=== PATIENT | male | born 1990 | race Caucasian/White ===

== ENCOUNTER 2019-02-18 15:45 | Emergency (ER) | payer OTHER ==
[~2019-02-18 15:45] MED LIST: CLI150 PO; FLU60VIA41 IM; LOR5 PO; ONDA4TAB9 PO; ONDA8TAB98 PO; SULF-198 PO
--- NOTE | 2019-02-18 15:57 | ER Report ---
History and Physical Time Seen By MD: 15:57 Hx. of Stated Complaint: pt states he is an alcoholic, doesnt keep track of how much he drinks. but he has been drinking daily for the past 4 years. has attempted to detox at home. states he needs more help. HPI/ROS CHIEF COMPLAINT: alcohol detox HISTORY OF PRESENT ILLNESS: 28 year old male presents to ED for alcohol detox. He is accompanied by his . He reports symptoms of tremor, nausea, vomiting, palpations, dizziness. No hallucinations or delusions. Patient states he is an alcoholic. He has been drinking for about 4 years, but daily for approximately 1 year. He drinks approximately 5 drinks a day with hard alcohol. He states he has tried to quit in the past, however he can quit for approximately one week before the tremors get too bad and he takes another drink to get rid of the symptoms. Patient reports that he does not want to continue drinking. He denies seizures. REVIEW OF SYSTEMS: Constitutional: Reports decreased appetite. No fever Respiratory: No cough, no dyspnea. Cardiovascular: Reports palpitations. No chest pain. Gastrointestinal: Reports nausea and vomiting. No abdominal pain. Reports diarrhea this morning. Musculoskeletal: No back pain. Neuro: Tremor in hands. Reports dizziness. No hallucinations or delusions. Psych: Reports suicidal thoughts, however, reports the thoughts were fleeting, no suicidal plan Allergies: Coded Allergies: No Known Drug Allergies (Verified , 09/28/16) Home Meds Active Scripts Ondansetron (ONDANSETRON ODT) 8 Mg Tab.rapdis, 8 MG PO Q12H PRN for NAUSEA/VOM ITING, #8 TAB 0 Refills Prov:TEGAN BARNES DNP, [employer] 12/19/18 Past Medical/Surgical History No significant past medical hx. Past surgical hx of appendectomy 2011. Reviewed Nurses Notes: Yes Hx Smoking: No Hx Substance Use Disorder: No Hx Alcohol Use: Yes (1 NIGHTLY) Constitutional Vital Sign - Last 24 Hours 02/18/19 02/18/19 02/18/19 02/18/19 15:45 15:49 15:53 16:00 Temp 99.2 Pulse ??? 96 Resp 20 B/P (MAP) 161/101 161/101 (121) 156/108 (124) Pulse Ox 92 O2 Delivery Room Air 02/18/19 02/18/19 02/18/1902/18/19 16:15 16:30 16:45 17:00 Pulse 88 92 Resp 9 B/P (MAP) 119/91 (100) 128/92 (104) Pulse Ox 96 94 02/18/19 02/18/19 02/18/19 02/18/19 17:15 17:20 17:30 17:50 Pulse 95 96 96 B/P (MAP) 136/99 (111) Pulse Ox 94 90 92 02/18/19 02/18/19 02/18/19 02/18/19 18:00 18:20 18:30 18:50 Pulse 87 95 B/P (MAP) 127/91 (103) 145/95 (112) Pulse Ox 94 02/18/19 19:00 B/P (MAP) 137/96 (110) Physical Exam General Appearance: The patient is alert, has no immediate need for airway protection and no current signs of toxicity. Eyes: Pupils equal and round no injection. Respiratory: Chest is non tender, lungs are clear to auscultation. Cardiac: Heart tachy, regular rhythm Gastrointestinal: Abdomen is soft and non tender, no masses, bowel sounds ishan l. Musculoskeletal: Neck: Neck is supple and non tender. Extremities have full range of motion and are non tender. Neuro: Tremors to upper extremities bilaterally. Skin: No rashes or lesions. DIFFERENTIAL DIAGNOSIS: After history and physical exam differential diagnosis was considered for alcohol withdrawal, electrolyte abnormality, drug use, alcohol use. Medical Decision Making Data Points Result Diagram: 02/18/19 1556 02/18/19 1556 Laboratory Hematology Test 02/18/19 15:56 Red Blood Count 5.12 M/uL (4.00-5.60) Mean Corpuscular Volume 91.2 fL (80.0-96.0) Mean Corpuscular Hemoglobin 32.3 pg (26.0-33.0) Mean Corpuscular Hemoglobin Concent 35.5 g/dL (32.0-36.0) Red Cell Distribution Width 13.4 % (11.5-14.5) Mean Platelet Volume 7.3 fL (7.2-11.1) Neutrophils (%) (Auto) 79.9 % (39.4-72.5) Lymphocytes (%) (Auto) 9.8 % (17.6-49.6) Monocytes (%) (Auto) 9.7 % (4.1-12.4) Eosinophils (%) (Auto) 0.1 % (0.4-6.7) Basophils (%) (Auto) 0.5 % (0.3-1.4) Nucleated RBC Relative Count (auto) 0.0 /100WBC Neutrophils # (Auto) 5.7 K/uL (2.0-7.4) Lymphocytes # (Auto) 0.7 K/uL (1.3-3.6) Monocytes # (Auto) 0.7 K/uL (0.3-1.0) Eosinophils # (Auto) 0.0 K/uL (0.0-0.5) Basophils # (Auto) 0.0 K/uL (0.0-0.1) Nucleated RBC Absolute Count (auto) 0.00 K/uL Urine Color Yellow Urine Clarity Clear Urine pH 6.0 pH (4.8-9.5) Urine Specific [place] 1.013 Urine Protein Negative mg/dL (NEGATIVE) Urine Glucose (UA) 50 mg/dL (NEGATIVE) Urine Ketones 80 mg/dL (NEGATIVE) Urine Blood Negative (NEGATIVE) Urine Nitrite Negative (NEGATIVE) Urine Bilirubin Negative (NEGATIVE) Urine Urobilinogen Negative mg/dL (0.2-1.9) Urine Leukocyte Esterase Negative (NEGATIVE) Urine RBC 1 /HPF (0-2/HPF) Urine WBC 1 /HPF (0-5/HPF) Urine Squamous Epithelial Cells None /LPF (</=FEW) Urine Bacteria Negative /HPF (NONE-FEW) Urine Mucus Few /HPF (NONE-FEW) Sodium Level 137 mmol/L (137-145) Potassium Level 3.3 mmol/L (3.5-5.0) Chloride Level 93 mmol/L (98-107) Carbon Dioxide Level 28 mmol/L (22-30) Blood Urea Nitrogen 7 mg/dl (9-21) Creatinine 0.80 mg/dl (0.66-1.25) Glomerular Filtration Rate Calc > 60.0 Random Glucose 116 mg/dl (75-110) Calcium Level 10.1 mg/dl (8.4-10.2) Magnesium Level 1.3 mg/dl (1.7-2.2) Total Bilirubin 1.6 mg/dl (0.2-1.3) Aspartate Amino Transf (AST/SGOT) 275 U/L (0-35) Alanine Aminotransferase (ALT/SGPT) 238 U/L (0-56) Alkaline Phosphatase 82 U/L (0-126) Total Protein 8.3 g/dl (6.3-8.2) Albumin 5.1 g/dl (3.5-5.0) Salicylates Level < 10 mg/L Salicylate Last Dose Date unk Urine Opiates Screen Negative Acetaminophen Level < 10 ug/ml Urine Barbiturates Screen Negative Ur Tricyclic Antidepressants Screen Negative Urine Phencyclidine Screen Negative Urine Amphetamines Screen Negative Urine Benzodiazepines Screen Negative Urine Cocaine Screen Negative Urine Cannabinoids Screen Negative Serum Alcohol < 10 mg/dl Chemistry Test 02/18/19 15:56 White Blood Count 7.1 k/uL (4.5-11.0) Red Blood Count 5.12 M/uL (4.00-5.60) Hemoglobin 16.5 g/dL (14.0-18.0) Hematocrit 46.6 % (42.0-52.0) Mean Corpuscular Volume 91.2 fL (80.0-96.0) Mean Corpuscular Hemoglobin 32.3 pg (26.0-33.0) Mean Corpuscular Hemoglobin Concent 35.5 g/dL (32.0-36.0) Red Cell Distribution Width 13.4 % (11.5-14.5) Platelet Count 147 K/uL (150-450) Mean Platelet Volume 7.3 fL (7.2-11.1) Neutrophils (%) (Auto) 79.9 % (39.4-72.5) Lymphocytes (%) (Auto) 9.8 % (17.6-49.6) Monocytes (%) (Auto) 9.7 % (4.1-12.4) Eosinophils (%) (Auto) 0.1 % (0.4-6.7) Basophils (%) (Auto) 0.5 % (0.3-1.4) Nucleated RBC Relative Count (auto) 0.0 /100WBC Neutrophils # (Auto) 5.7 K/uL (2.0-7.4) Lymphocytes # (Auto) 0.7 K/uL (1.3-3.6) Monocytes # (Auto) 0.7 K/uL (0.3-1.0) Eosinophils # (Auto) 0.0 K/uL (0.0-0.5) Basophils # (Auto) 0.0 K/uL (0.0-0.1) Nucleated RBC Absolute Count (auto) 0.00 K/uL Urine Color Yellow Urine Clarity Clear Urine pH 6.0 pH (4.8-9.5) Urine Specific [place] 1.013 Urine Protein Negative mg/dL (NEGATIVE) Urine Glucose (UA) 50 mg/dL (NEGATIVE) Urine Ketones 80 mg/dL (NEGATIVE) Urine Blood Negative (NEGATIVE) Urine Nitrite Negative (NEGATIVE) Urine Bilirubin Negative (NEGATIVE) Urine Urobilinogen Negative mg/dL (0.2-1.9) Urine Leukocyte Esterase Negative (NEGATIVE) Urine RBC 1 /HPF (0-2/HPF) Urine WBC 1 /HPF (0-5/HPF) Urine Squamous Epithelial Cells None /LPF (</=FEW) Urine Bacteria Negative /HPF (NONE-FEW) Urine Mucus Few /HPF (NONE-FEW) Glomerular Filtration Rate Calc > 60.0 Calcium Level 10.1 mg/dl (8.4-10.2) Magnesium Level 1.3 mg/dl (1.7-2.2) Total Bilirubin 1.6 mg/dl (0.2-1.3) Aspartate Amino Transf (AST/SGOT) 275 U/L (0-35) Alanine Aminotransferase (ALT/SGPT) 238 U/L (0-56) Alkaline Phosphatase 82 U/L (0-126) Total Protein 8.3 g/dl (6.3-8.2) Albumin 5.1 g/dl (3.5-5.0) Salicylates Level < 10 mg/L Salicylate Last Dose Date unk Urine Opiates Screen Negative Acetaminophen Level < 10 ug/ml Urine Barbiturates Screen Negative Ur Tricyclic Antidepressants Screen Negative Urine Phencyclidine Screen Negative Urine Amphetamines Screen Negative Urine Benzodiazepines Screen Negative Urine Cocaine Screen Negative Urine Cannabinoids Screen Negative Serum Alcohol < 10 mg/dl Toxicology Test 02/18/19 15:56 Salicylates Level < 10 mg/L Salicylate Last Dose Date unk Urine Opiates Screen Negative Acetaminophen Level < 10 ug/ml Urine Barbiturates Screen Negative Ur Tricyclic Antidepressants Screen Negative Urine Phencyclidine Screen Negative Urine Amphetamines Screen Negative Urine Benzodiazepines Screen Negative Urine Cocaine Screen Negative Urine Cannabinoids Screen Negative Serum Alcohol < 10 mg/dl Urinalysis Test 02/18/19 15:56 Urine Color Yellow Urine Clarity Clear Urine pH 6.0 pH (4.8-9.5) Urine Specific [place] 1.013 Urine Protein Negative mg/dL (NEGATIVE) Urine Glucose (UA) 50 mg/dL (NEGATIVE) Urine Ketones 80 mg/dL (NEGATIVE) Urine Blood Negative (NEGATIVE) Urine Nitrite Negative (NEGATIVE) Urine Bilirubin Negative (NEGATIVE) Urine Urobilinogen Negative mg/dL (0.2-1.9) Urine Leukocyte Esterase Negative (NEGATIVE) Urine RBC 1 /HPF (0-2/HPF) Urine WBC 1 /HPF (0-5/HPF) Urine Squamous Epithelial Cells None /LPF (</=FEW) Urine Bacteria Negative /HPF (NONE-FEW) Urine Mucus Few /HPF (NONE-FEW) ED Course/Re-evaluation ED Course Upon arrival tot he ED, patient admitted to an exam room, hx and physical obtained, differentials considered. Patient came here for alcohol detox. He is accompanied by his . He reports symptoms of tremor, nausea, vomiting, palpations, dizziness. No hallucinations or delusions. Patient states he is an alcoholic. He has been drinking for about 4 years, but daily for approximately 1 year. He drinks approximately 5 drinks a day with hard alcohol. He states he has tried to quit in the past, however he can quit for approximately one week before the tremors get too bad and he takes another drink to get rid of the symptoms. Patient reports that he does not want to continue drinking. He denies seizures. Reports suicidal thoughts, however, reports the thoughts were fleeting, no suicidal plan. Reports anxiety. On exam, heart rate tachy, lungs are clear. Neuro grossly intact. Patient does have tremors of upper extremities. CBC, CMP, urine drug screen, acetaminophen, salicylate, alcohol level, TSH, UA, magnesium, ordered. Labs with normal RBC with no changes to MCV and MCH. Urine drug screen negative. <10 alcohol level. Albumin 5.1. Electrolytes slightly low. AST 275, ALT 238. IV started, ativan 1mg, zofran 4mg, and banana bag given. Ativan helped decrease the anxiety and tremors. Discussed with patient about going up to [facility] for detox as the risk of seizures is elevated for several days after stopping drinking. Patient and stated they would think about it. They agreed to talk with [facility] tech about admission. After talking with the tech, patient agrees to being admitted. Yoon Reddy was consulted and agrees to admit patient. Decision to Disposition Date: Feb 18, 2019 Decision to Disposition Time: 19:29 Depart Departure Latest Vital Signs Vital Signs Date Time Temp Pulse Resp B/P (MAP) Pulse Ox O2 Delivery O2 Flow Rate FiO2 02/18/19 19:00 137/96 (110) 02/18/19 18:50 95 02/18/19 18:20 94 02/18/19 16:15 9 02/18/19 15:49 99.2 Room Air Impression: Primary Impression: Alcohol abuse Condition: Improved Disposition: XFER TO [facility] DEVELOPMENT MANAGER/PA consult with MD: Verbally MD Consult Note: Yoon Reddy NP consulted for admission to [facility]. MARCELA KEATING Feb 18, 2019 15:57
[2019-02-18 16:06] LABS: PLATELET COUNT, AUTOMATED 147 K/uL (150-450)
[2019-02-18] MEDS ORDERED: THIAMINE HCL(*) 200 MG/2 ML IN 100 MG, FOLIC ACID(*) 50 MG/10 ML INJ 1 MG, MULTIVITAMIN... IV ONE (16:18)
[2019-02-18] MEDS ORDERED: LORazepam 2 MG/ML VIAL IVP ONE (16:20)
[2019-02-18] MEDS ORDERED: ONDANSETRON 4 MG/2 ML VIAL IVP ONE (16:55)
[2019-02-18 20:00] VITALS: BP 140/94
== END 2019-02-18 20:15 ==
LOC: ER 15:59
DX: F10.239 Alcohol dependence with withdrawal, unspecified (principal)
CPT/HCPCS: 80305; 80320; 80329; 81001; 83735; 84443; 85025; 96365; 96366; 96375; 99284; J2060; J2405; J3411; J3475; J7030; 82040; 82247; 82310; 82374; 82435; 82565; 82947; 84075; 84132; 84155; 84295; 84450; 84460; 84520

== ENCOUNTER 2019-02-18 19:40 | Inpatient (IN) | payer OTHER ==
[~2019-02-18] VITALS: Ht 167.6 cm; Wt 63.5 kg
[2019-02-18] MEDS ORDERED: MAG HYD/AL HYD/SIMETH 30ML UDC PO PRN (20:00)
[2019-02-18 20:25] VITALS: BP 150/87
[2019-02-18] MEDS: DIAZEPAM 10 MG TAB PO PRN ×3 (20:38→22:40)
[2019-02-18] MEDS: NICOTINE 21 MG/24 HR PATCH TD SCH (22:03)
[2019-02-19 03:30] VITALS: BP 122/99
[2019-02-19 05:40] VITALS: BP 126/97
[2019-02-19] MEDS: DIAZEPAM 10 MG TAB PO PRN ×7 (05:48→22:32)
[2019-02-19 08:33] VITALS: BP 135/103
[2019-02-19] MEDS: THIAMINE HCL 100 MG TAB PO SCH (08:36)
[2019-02-19] MEDS: MULTIVITAMINS TAB PO SCH (08:36)
[2019-02-19] MEDS: FOLIC ACID 1 MG TAB PO SCH (08:36)
[2019-02-19 13:16] VITALS: BP 143/97
[2019-02-19 15:10] VITALS: BP 132/88
--- NOTE | 2019-02-19 15:44 | HISTORY AND PHYSICAL ---
DATE OF ADMISSION: February 18, 2019 The patient was seen on February 19, 2019 at 10 a.m. for this history and physical. ATTENDING PHYSICIAN Suni Hernandes MD CHIEF COMPLAINT "Drinking was affecting my work and I realized it was time to stop. Every time I tried, the shakes got too bad." HISTORY OF PRESENT ILLNESS This is the first-ever psychiatric admission for this 28-year old male with a history of alcohol use disorder who is here on a voluntary basis for an alcohol detox. The patient has been drinking for four years, approximately six to eight drinks per day of Rum. He has tried to stop a couple of times at home and each time his hands start shaking so much that he takes a drink to treat the tremors. 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 He fears that his performance at work has been declining because of this and he is afraid that he could lose his job. About two weeks ago, he finally admitted to his how much he had been drinking since previously he had been hiding it. She encouraged him to come in for treatment and he came voluntarily to the emergency room yesterday accompanied by her. In the ER, his blood alcohol level was less than 10 because he had stopped drinking all of the day of admission and most of the previous day as well but he was experiencing alcohol withdrawal symptoms. He was admitted voluntarily without incident to [facility]. PAST PSYCHIATRIC HISTORY He has never been an inpatient. He has never had a rehab admission. He denies any history of depression. He denies a history of therapy. FAMILY HISTORY His maternal uncle had significant alcohol and substance abuse and of heart disease while he was in [facility]. PAST MEDICAL HISTORY Appendectomy at age 22. CURRENT MEDICATIONS None. ALLERGIES Aged meat and cheese. SOCIAL HISTORY The patient was born in [place], [place] to parents who are still . He is the middle of three boys. At age 6, the family moved to [place], [place]. He attended school in [place] and was an A student. He graduated from high school there. He entered the [employer], where he got a bachelor's degree of molecular biology. He is now in a PhD program there and has already completed his course work and is working on his dissertation. He met his nine years ago and they have been for the past two years. They do not have any children. 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 LEGAL HISTORY Negative. ABUSE HISTORY The patient denies any history of physical or sexual abuse. SUBSTANCE ABUSE HISTORY The patient has never used any other drugs other than alcohol. He had his first drink at 19 and has been drinking heavily for the past four years, as above six to eight drinks per day of Rum. PHYSICAL EXAMINATION Please see the emergency room physician's report. VITAL SIGNS Temperature 99.6, pulse 98, respiratory rate 24, blood pressure 150/87, pulse ox 90% on room air. LABORATORY STUDIES CBC is within normal limits except for a low platelet count at 147. Potassium low 3.3, chloride low 93., BUN low 7, random glucose high 116, magnesium low 1.3. Total bilirubin high 1.6, AST high 275, ALT high 238, total protein high 8.3, albumin high 4.1. The remainder of the chemistry panel is WNL. TSH WNL at 2.10. Urinalysis is positive for glucose at 50, positive for ketones at 80. RBC 1, WBC 1. The remainder of the UA is within normal limits. His tox screen is negative and his serum alcohol is nil. MENTAL STATUS EXAM He is a mildly disheveled young man with a sotelo, wearing glasses. He is somewhat ill appearing from the effects of alcohol withdrawal and subsequent Valium administration but he is fully alert, through the interview. His eye contact is fair to poor. He displayed psychomotor retardation. Speech was slow and of low volume. Mood and affect are depressed. Thought process is logical, goal directed. Thought content is negative for suicidal ideation, homicidal ideation, auditory hallucinations, visual hallucinations and delusions. He is alert and fully oriented to person, place, time and situation. Memory is intact for immediate, recent and remote recall. Intelligence is above-average based on interview. Insight and judgment are good. IMPRESSION 1. Alcohol use disorder, severe. 2. Alcohol withdrawal. PLAN He is admitted to [facility]. He is being monitored with AL protocol using Valium for detox. We will work with the patient to educate him regarding substance abuse and sobriety strategies. We will contact AA members and have them come and speak with him tomorrow regarding the program. We will assist him with arranging outpatient treatment for after his detox is complete. We discussed with him today attending the intensive outpatient treatment program at [facility] as well as the importance of daily AA meetings. We met with his , who seems very supportive. His estimated length of stay will be three to five days. JOIE
[2019-02-19] MEDS: NICOTINE 21 MG/24 HR PATCH TD SCH (20:18)
[2019-02-19] MEDS ORDERED: PATCH REMOVAL 1 EA TP SCH (21:00)
[2019-02-20 03:15] VITALS: BP 123/98
[2019-02-20] MEDS: DIAZEPAM 10 MG TAB PO PRN (03:27)
[2019-02-20] MEDS ORDERED: LOPERAMIDE HCL 2 MG CAP PO PRN (04:20)
[2019-02-20 05:50] VITALS: BP 127/93
[2019-02-20] MEDS: FOLIC ACID 1 MG TAB PO SCH (08:16)
[2019-02-20] MEDS: MULTIVITAMINS TAB PO SCH (08:16)
[2019-02-20] MEDS: THIAMINE HCL 100 MG TAB PO SCH (08:16)
[2019-02-20] MEDS: MAGNESIUM OXIDE 400 MG TAB PO SCH (08:48)
[2019-02-20 10:05] VITALS: BP 128/92
[2019-02-20 14:30] VITALS: BP 128/98
--- NOTE | 2019-02-20 16:13 | BHS Progress Note ---
[facility] - Subjective Progress Notes Subjective Pt seen in conference room with team. Pt says he is feeling better today in terms of withdrawal symptoms, no longer tremulous, his most recent valium was at 0300 today. He met with an AA member last night and attended an AA meeting here on the unit. He found it very difficult to share his story, he got very t earful. He is dealing with a lot of guilt and shame. We reviewed his history and he does have a fair amount of anxiety symptoms, including some social anxiety, moderate fear of heights, and has experienced panic attacks. But these symptoms have been mostly present during the time in his life since he started drinking, so they may well be alcohol-induced. Pt is working hard on his treatment, participating cooperatively in groups and individual therapies. We are planning on a discharge 24 hrs after last valium (at the earliest), with follow up at [facility] program, and AA meetings. Suicidal Ideation: None Homicidal Ideation: None [facility] - Objective Physical Exam Vital Signs Vital Signs 02/20/19 14:30 Temp 99.6 Pulse 110 Resp 18 B/P (MAP) 128/98 (108) Pulse Ox 98 O2 Delivery Room Air Muscle Strength and Tone: WNL Gait and Station: Steady [facility] Medications Reviewed: Side Effects, Benefits of Medication, Risks Allergies Reviewed: Yes Mental Status Exam General Appearance: Casual, Well Groomed, Cooperative, Polite Speech: Clear, Normal Volume, Delayed Mood: Dysthmic/Depressed Affect: Calm, Sad Thought Process: Other (circumstantial) Thought Content: No Suicidal Ideation, No Homicidal Ideation, No Delusions, No Auditory Halllucinations, No Visual Hallucinations, No Thought Broadcasting, No Ideas of Reference, No Obsessions, No Compulsions, No Other Sensorium: Clear Cognition: Alert & Oriented-Person, Alert & Oriented-Place, Alert & Oriented- Time, [id number] Memory: Immediate, Recent, Remote Intelligence: Above Average Insight Judgment: Fair Result Diagram: 02/20/19 0600 [facility] Assessment and Plan [id number] Encounter Date: Feb 20, 2019 [id number] Encounter Time: 09:00 [facility] Plan: Necessary Precautions, Individual/Group Therapy, Admin/Titrate Meds, Educate Patient Tobacco Medications: Not Appropriate Condition Multpiple Antipsychotics Used: No Problems: (1) Alcohol use disorder, severe, dependence (2) Alcohol withdrawal CEBALLOS,KENYA MD Feb 20, 2019 16:13
[2019-02-20] MEDS ORDERED: NICOTINE POLACRILEX 2 MG GUM PO PRN (16:35)
[2019-02-21 05:21] VITALS: BP 130/91
[2019-02-21] MEDS: MAGNESIUM OXIDE 400 MG TAB PO SCH (08:18)
[2019-02-21] MEDS: FOLIC ACID 1 MG TAB PO SCH (08:18)
[2019-02-21] MEDS: MULTIVITAMINS TAB PO SCH (08:18)
[2019-02-21] MEDS: THIAMINE HCL 100 MG TAB PO SCH (08:19)
[2019-02-21] MEDS ORDERED: NICO-218 TD (12:05)
--- NOTE | 2019-02-21 12:15 | BHS Discharge Summary ---
[facility] Discharge Summary Knmh-ov-[id number] Encounter Date: Feb 21, 2019 Rsqe-[id number]-Kwnd Encounter Time: 09:30 Reason-Hosp/Final Diag (DSM-V): (1) Alcohol use disorder, severe, dependence Hospital Course & Plan: DATE OF ADMISSION: February 18, 2019 The patient was seen on February 19, 2019 at 10 a.m. for this history and physical. ATTENDING PHYSICIAN Kenya Ceballos MD CHIEF COMPLAINT "Drinking was affecting my work and I realized it was time to stop. Every time I tried, the shakes got too bad." HISTORY OF PRESENT ILLNESS This is the first-ever psychiatric admission for this 28-year old male with a history of alcohol use disorder who is here on a voluntary basis for an alcohol detox. The patient has been drinking for four years, approximately six to eight drinks per day of Rum. He has tried to stop a couple of times at home and each time his hands start shaking so much that he takes a drink to treat the tremors. 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 He fears that his performance at work has been declining because of this and he is afraid that he could lose his job. About two weeks ago, he finally admitted to his how much he had been drinking since previously he had been hiding it. She encouraged him to come in for treatment and he came voluntarily to the emergency room yesterday accompanied by her. In the ER, his blood alcohol level was less than 10 because he had stopped drinking all of the day of admission and most of the previous day as well but he was experiencing alcohol withdrawal symptoms. He was admitted voluntarily without incident to [facility]. HOSPITAL COURSE Pt was admitted to [facility] and detoxed with valium per [facility] protocol. Detox was uncomplicated. Pt's came for team meetings and was very supportive. She agreed to quit drinking too as a way of being supportive to him, and she removed all alcohol from the home. Pt participated actively in treatment groups and individual therapies, and he met with AA members and even attended an AA meeting held on the unit. He was discharged in stable condition to attend AA and to enroll in [facility]. (2) Alcohol withdrawal Physical Exam Latest Vital Signs Vital Signs 02/21/19 05:21 Temp 98.1 Pulse 68 Resp 15 B/P (MAP) 130/91 (104) Pulse Ox 95 O2 Delivery Room Air Mental Status Exam General Appearance: Casual, Well Groomed, Good Eye Contact, Cooperative, Polite, Good Interaction Speech: Clear, Spontaneous, Normal Rate, Normal Rhythm, Normal Volume, Normal Tone Mood: Euthymic Affect: Full and Appropriate, Calm Thought Process: Organized, Logical, Goal Directed Thought Content: No Suicidal Ideation, No Homicidal Ideation, No Delusions, No Auditory Halllucinations, No Visual Hallucinations, No Thought Broadcasting, No Ideas of Reference, No Obsessions, No Compulsions, No Other Sensorium: Clear Cognition: Alert & Oriented-Person, Alert & Oriented-Place, Alert & Oriented- Time, [id number]-[id number] Memory: Immediate, Recent, Remote Intelligence: Above Average Insight Judgment: Fair Departure Result Diagram: 02/20/19599 Item Value Date Time Urine Color Yellow 02/20/19 Urine Clarity Clear 02/20/19 Urine pH 7.0 pH 02/20/19 Urine Specific [place] 1.004 02/20/19 Urine Protein Negative mg/dL 02/20/19 Urine Glucose (UA) Negative mg/dL 02/20/19 Urine Ketones Negative mg/dL 02/20/19 Urine Blood Negative 02/20/19 Urine Nitrite Negative 02/20/19 Urine Bilirubin Negative 02/20/19 Urine Urobilinogen Negative mg/dL 02/20/19 Urine Leukocyte Esterase Negative 02/20/19 Urine RBC <1 /HPF 02/20/19 Urine WBC <1 /HPF 02/20/19 Urine Squamous Epithelial Cells None /LPF 02/20/19 Urine Bacteria Few /HPF 02/20/19 Urine Mucus None /HPF 02/20/19 Sodium Level 141 mmol/L 02/20/19599 Potassium Level 3.5 mmol/L 02/20/19599 Chloride Level 104 mmol/L 02/20/19599 Carbon Dioxide Level 27 mmol/L 02/20/19599 Blood Urea Nitrogen 7 mg/dl L 02/20/19599 Creatinine 0.70 mg/dl 02/20/19599 Glomerular Filtration Rate Calc > 60.0 02/20/19599 Random Glucose 91 mg/dl 02/20/1900 Calcium Level 9.2 mg/dl 6/11/19 0600 Total Bilirubin 1.0 mg/dl 02/20/19 0600 Aspartate Amino Transf (AST/SGOT) 143 U/L H 02/20/19 0600 Alanine Aminotransferase (ALT/SGPT) 164 U/L H 02/20/19 0600 Alkaline Phosphatase 60 U/L 02/20/19 0600 Total Protein 6.7 g/dl 02/20/19 0600 Albumin 4.2 g/dl 02/20/19 0600 White Blood Count 7.1 k/uL 02/18/19 1556 Red Blood Count 5.12 M/uL 02/18/19 1556 Hemoglobin 16.5 g/dL 02/18/19 1556 Hematocrit 46.6 % 02/18/19 1556 Mean Corpuscular Volume 91.2 fL 02/18/19 1556 Mean Corpuscular Hemoglobin 32.3 pg 02/18/19 1556 Mean Corpuscular Hemoglobin Concent 35.5 g/dL 02/18/19 1556 Red Cell Distribution Width 13.4 % 02/18/19 1556 Platelet Count 147 K/uL L 02/18/19 1556 Mean Platelet Volume 7.3 fL 02/18/19 1556 Salicylates Level < 10 mg/L 02/18/19 155 Salicylate Last Dose Date unk 02/18/19 1556 Urine Opiates Screen Negative 02/18/19 1556 Acetaminophen Level < 10 ug/ml 02/18/19 155 Urine Barbiturates Screen Negative 02/18/19 1556 Ur Tricyclic Antidepressants Screen Negative 02/18/19 1556 Urine Phencyclidine Screen Negative 02/18/19 1556 Urine Amphetamines Screen Negative 02/18/19 1556 Urine Benzodiazepines Screen Negative 02/18/19 1556 Urine Cocaine Screen Negative 02/18/19 155 Urine Cannabinoids Screen Negative 02/18/19 155 Serum Alcohol < 10 mg/dl 02/18/19 155 Condition: Improved Discharge to: Home Discharge Instructions Home Meds Active Scripts Ondansetron (ONDANSETRON ODT) 8 Mg Tab.rapdis, 8 MG PO Q12H PRN for NAUSEA/VOMITING, #8 TAB 0 Refills Prov:TEGAN BARNES DNP, [employer]OL [employer]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
== END 2019-02-21 12:33 | disposition home or self-care (01) | DRG 897 ==
LOC: BHS 19:40
PROVIDERS: ADMIT Registered Nurse Psychiatric/Mental Health, Adult; ATTEND Registered Nurse Psychiatric/Mental Health, Adult
DX: F10.230 Alcohol dependence with withdrawal, uncomplicated (principal); F41.9 Anxiety disorder, unspecified; F40.241 Acrophobia; Y90.0 Blood alcohol level of less than 20 mg/100 ml
CPT/HCPCS: 36415; 81001; 82040; 82247; 82310; 82374; 82435; 82565; 82947; 84075; 84132; 84155; 84295; 84450; 84460; 84520

== ENCOUNTER → 2019-04-17 | Outpatient (CLI) | payer OTHER ==
[~2019-04-17] MED LIST changes: +NICO-218 TD
[2019-04-17 11:29] LABS: LDL CHOLESTEROL 102 mg/dl
[2019-04-17 12:11] LABS: PLATELET COUNT, AUTOMATED 385 K/uL (150-450)
== END ==
LOC: LAB 10:18
PROVIDERS: ATTEND Nurse Practitioner Family
DX: Z00.00 Encounter for general adult medical examination without abnormal findings (principal); F41.9 Anxiety disorder, unspecified; T14.91XD Suicide attempt, subsequent encounter
CPT/HCPCS: 36415; 82040; 82247; 82310; 82374; 82435; 82465; 82565; 82947; 83718; 83970; 84075; 84132; 84155; 84295; 84443; 84450; 84460; 84478; 84520; 85025

== ENCOUNTER → 2019-04-25 | Outpatient (CLI) | payer OTHER | LOC: LAB 08:36 | PROVIDERS: ATTEND Nurse Practitioner Family | DX: E83.52 Hypercalcemia (principal); F41.9 Anxiety disorder, unspecified; R03.0 Elevated blood-pressure reading, without diagnosis of hypertension; E87.8 Other disorders of electrolyte and fluid balance, not elsewhere classified | CPT/HCPCS: 36415; 82040; 82247; 82306; 82310; 82374; 82435; 82565; 82947; 84075; 84132; 84146; 84155; 84295; 84439; 84450; 84460; 84481; 84520; 86376 ==